=== PATIENT | female | born 1955 | race Hispanic/Latino ===

== ENCOUNTER 2016-09-18 08:05 | Outpatient (CLI) | payer BC ==
--- NOTE | 2016-09-18 09:25 | Mammography Report ---
BILATERAL MAMMOGRAM: FINDINGS: The breasts are almost entirely fat (<25% glandular). No mass, distortion, suspicious calcification, or skin change is seen. No significant change compared to exams dating back to 2015. CAD was utilized. IMPRESSION: Negative mammogram. There is no mammographic evidence of malignancy. RECOMMENDATION: Follow-up per ACS guidelines. BI-RADS CATEGORY: 1 = Negative ACR BI-RADS MAMMOGRAPHIC CODES: 0 = Needs additional imaging evaluation; 1 = Negative; 2 = Benign; 3 = Probably benign; 4 = Suspicious; 5 = Malignant; 6 = Known biopsy-proven malignancy COMMENT: 1. Dense breast tissue, i.e., adenosis, fibrocystic changes, etc., may obscure an underlying neoplasm. 2. Approximately 10% of cancers are not detected with mammography. 3. A negative mammography report should not delay biopsy if a clinically suspicious mass is present. COMMENT: Patient follow-up letters are generated in [employer].
== END 2016-09-18 08:06 | disposition home or self-care (01) ==
LOC: SPVWC 08:05
PROVIDERS: ATTEND Internal Medicine
DX: Z12.31 Encounter for screening mammogram for malignant neoplasm of breast (principal)
CPT/HCPCS: 77067; G0202

== ENCOUNTER 2017-06-01 12:44 | Outpatient (CLI) | payer BC ==
--- NOTE | 2017-06-01 13:59 | Mammography Report ---
RIGHT DIGITAL DIAGNOSTIC MAMMOGRAM with CAD and right breast ultrasound: 06/01/17 12:44:00 CLINICAL: Palpable right breast lump. COMPARISON:09/18/16 screening mammogram. FINDINGS: The breast is mostly fatty.No mass, architectural distortion or suspicious calcifications. Very mild skin thickening at 6 o'clock correlates with the palpable marker. No underlying mass. Ultrasound of the right breast was performed and demonstrated slight elevation of the skin at 5 o'clock at the inframammary fold but no underlying mass or cyst. I examined the breast and palpated 2 cm lump with normal underlying fat and no skin lesion is identified. IMPRESSION: A probably benign palpable right breast lump with a negative mammogram and negative ultrasound. BI-RADS CATEGORY: 3 - - Probably Benign RECOMMENDATION: Routine mammographic screening. She will be due for a bilateral screening mammogram in three months. ACR BI-RADS MAMMOGRAPHIC CODES: 0 = Needs additional imaging evaluation; 1 = Negative; 2 = Benign; 3 = Probably benign; 4 = Suspicious; 5 = Malignant; 6 = Known biopsy-proven malignancy COMMENT: 1. Dense breast tissue, i.e., adenosis, fibrocystic changes, etc., may obscure an underlying neoplasm. 2. Approximately 10% of cancers are not detected with mammography. 3. A negative mammography report should not delay biopsy if a clinically suspicious mass is present. COMMENT: Patient follow-up letters are generated by our [employer] application.
== END 2017-06-01 12:45 | disposition home or self-care (01) ==
LOC: SPVWC 12:44
PROVIDERS: ATTEND Internal Medicine
DX: N63.10 Unspecified lump in the right breast, unspecified quadrant (principal); R92.2 Inconclusive mammogram

== ENCOUNTER 2017-09-20 08:06 | Outpatient (CLI) | payer BC ==
--- NOTE | 2017-09-20 09:07 | Mammography Report ---
BILATERAL DIGITAL SCREENING MAMMOGRAM with CAD: 09/20/17 08:06:00 CLINICAL: Routine screening. COMPARISON:09/18/16 FINDINGS: The breasts are almost entirely fatty. No mass, architectural distortion or suspicious calcifications. IMPRESSION: No mammographic evidence of malignancy. BI-RADS CATEGORY: 1 - - Negative RECOMMENDATION: Routine mammographic screening in one year. COMMENT: Patient follow-up letters are generated by our [employer] application.
== END 2017-09-20 08:07 | disposition home or self-care (01) ==
LOC: SPVWC 08:06
PROVIDERS: ATTEND Internal Medicine
DX: Z12.31 Encounter for screening mammogram for malignant neoplasm of breast (principal)
CPT/HCPCS: 77067

== ENCOUNTER 2018-09-24 07:57 | Outpatient (CLI) | payer BC ==
--- NOTE | 2018-09-24 08:40 | Mammography Report ---
BILATERAL DIGITAL SCREENING MAMMOGRAM WITH CAD INDICATION: Routine screening mammography. TECHNIQUE: Digital bilateral 2D mammography was obtained in the craniocaudal and mediolateral obliq ue projections. This examination was interpreted with the benefit of Computer-Aided Detection analysi s. COMPARISON: 09/20/2017 FINDINGS: Breast Density: The breasts are almost entirely fatty. No mass, architectural distortion or suspicious calcifications. IMPRESSION:No mammographic evidence of malignancy. BI-RADS Category 1: Negative. No mammographic evidence of malignancy. Recommend routine screening m ammography in one year. A "normal" or negative report should not discourage follow up or biopsy of a clinically significant f inding. A written summary of these findings will be mailed to the patient. The patient will be entered into a mammography reporting system which will generate a reminder letter for the patient's next appointmen t at the appropriate interval. The [employer] recommends yearly mammograms starting at age 40 and continuing as l sushma as a woman is in good health. Breast MRI is recommended for women with an approximate 20-25% or greater lifetime risk of breast cancer, including women with a strong family history of breast or ova michael cancer or who have been treated for Hodgkin's disease. Signer Name: Walker Remy MD Signed: 09/24/2018 8:35 AM Workstation Name: [id number]
== END 2018-09-24 07:58 | disposition home or self-care (01) ==
LOC: SPVWC 07:57
PROVIDERS: ATTEND Surgery
DX: Z12.31 Encounter for screening mammogram for malignant neoplasm of breast (principal)
CPT/HCPCS: 77067

== ENCOUNTER 2019-10-21 09:25 | Outpatient (CLI) | payer BC ==
--- NOTE | 2019-10-21 10:12 | Mammography Report ---
DIGITAL SCREENING MAMMOGRAM WITH CAD, 10/21/2019 INDICATION: Routine screening mammography. TECHNIQUE: Digital bilateral 2D mammography was obtained in the craniocaudal and mediolateral obliq ue projections. This examination was interpreted with the benefit of Computer-Aided Detection analysi s. COMPARISON: 09/20/2017 FINDINGS: Breast Density: The breasts are almost entirely fatty. There is no evidence of dominant mass, suspicious calcifications or architectural distortion in eithe r breast. Stable benign-appearing nodule is again noted in the right breast. Overall, no interval fransisco nge. IMPRESSION: Follow up recommendation: Routine yearly BI-RADS Category 2: Benign. A "normal" or negative report should not discourage follow up or biopsy of a clinically significant f inding. A written summary of these findings will be mailed to the patient. The patient will be entered into a mammography reporting system which will generate a reminder letter for the patient's next appointmen t at the appropriate interval. The [employer] recommends yearly mammograms starting at age 40 and continuing as l sushma as a woman is in good health. Breast MRI is recommended for women with an approximate 20-25% or greater lifetime risk of breast cancer, including women with a strong family history of breast or ova michael cancer or who have been treated for Hodgkin's disease. Signer Name: Lizzette Soriano MD Signed: 10/21/2019 10:08 AM Workstation Name: [id number]
== END 2019-10-21 09:26 | disposition home or self-care (01) ==
LOC: SPVWC 09:25
PROVIDERS: ATTEND Surgery
DX: Z12.31 Encounter for screening mammogram for malignant neoplasm of breast (principal); N64.89 Other specified disorders of breast
CPT/HCPCS: 77067

== ENCOUNTER 2019-11-05 12:47 | Outpatient (CLI) | payer BC ==
--- NOTE | 2019-11-05 14:01 | Ultrasound Report ---
EXAMINATION: Bilateral Limited Breast Ultrasound, 11/05/2019 INDICATION: Bilateral palpable lumps in the inframammary fold regions. COMPARISON: Recent mammogram 10/21/2019 FINDINGS: Targeted ultrasound evaluation was performed of the area of interest. Right breast: There is no sonographic finding corresponding to the palpable lump in the inferior righ t breast. Left breast: There is no sonographic finding corresponding to the palpable lump in the inferior left breast. IMPRESSION: No sonographic finding to account for the patient's palpable lumps bilaterally. Please co rrelate clinically. Follow up recommendation: Clinical correlation for bilateral palpable lumps. Otherwise, return to [facility] screening mammography. BI-RADS Category 1: Negative. Signer Name: Lizzette Soriano MD Signed: 11/05/2019 1:56 PM Workstation Name: [id number]
== END 2019-11-05 12:48 | disposition home or self-care (01) ==
LOC: SPVWC 12:47
PROVIDERS: ATTEND Surgery
DX: N60.32 Fibrosclerosis of left breast (principal); N60.31 Fibrosclerosis of right breast

== ENCOUNTER 2020-10-26 09:02 | Outpatient (CLI) | payer BC ==
--- NOTE | 2020-10-26 10:57 | Mammography Report ---
DIGITAL SCREENING MAMMOGRAM WITH CAD, 10/26/2020 CLINICAL INFORMATION / INDICATION: Routine screening mammography. SCREENING MAMMO Z12.31 TECHNIQUE: Digital bilateral 2D mammography was obtained in the craniocaudal and mediolateral obliqu e projections. This examination was interpreted with the benefit of Computer-Aided Detection analysis . COMPARISON: 09/05/2013 through 10/21/2019. FINDINGS: Breast Density: The breasts are almost entirely fatty. No dominant mass, suspicious calcifications, or architectural distortion in either breast. Mild asymmetric breast tissue in the right upper outer quadrant is stable. IMPRESSION: No mammographic evidence of malignancy. Follow up recommendation: Routine yearly BI-RADS Category 2: Benign. A "normal" or negative report should not discourage follow up or biopsy of a clinically significant f inding. A written summary of these findings will be mailed to the patient. The patient will be entered into a mammography reporting system which will generate a reminder letter for the patient's next appointmen t at the appropriate interval. The [employer] recommends yearly mammograms starting at age 40 and continuing as l sushma as a woman is in good health. Breast MRI is recommended for women with an approximate 20-25% or greater lifetime risk of breast cancer, including women with a strong family history of breast or ova michael cancer or who have been treated for Hodgkin's disease. Signer Name: Virgilio Vera MD Signed: 10/26/2020 10:53 AM Workstation Name: [id number]
== END 2020-10-26 09:03 | disposition home or self-care (01) ==
LOC: SPVWC 09:02
PROVIDERS: ATTEND Surgery
DX: Z12.31 Encounter for screening mammogram for malignant neoplasm of breast (principal); N64.89 Other specified disorders of breast
CPT/HCPCS: 77067

== ENCOUNTER 2021-10-27 13:10 | Outpatient (CLI) | payer BC | END 2021-10-27 13:11 | disposition home or self-care (01) | LOC: SPVWC 13:10 | PROVIDERS: ATTEND Internal Medicine | DX: Z12.31 Encounter for screening mammogram for malignant neoplasm of breast (principal) | CPT/HCPCS: 77067 ==